=== PATIENT | female | born 1980 | race Caucasian/White ===

== ENCOUNTER 2016-11-29 03:20 | Inpatient (IN) | payer OTHER ==
[2016-11-29] MEDS ORDERED: OXYTOCIN 10 UNIT/ML 1 ML VIAL IM PRN (04:54)
[2016-11-29] MEDS ORDERED: TERBUTALINE 1 MG/ML VIAL SQ PRN (04:54)
[2016-11-29] MEDS ORDERED: LIDOCAINE 1% (PF) 10 MG/ML (30 ML SDV) SQ PRN (04:54)
[2016-11-29] MEDS ORDERED: CARBOPROST TROMETHAMINE 250 MCG/ML 1 ML AMP IM PRN (04:54)
[2016-11-29] MEDS ORDERED: ceFAZolin 2 GM in SODIUM CHLORIDE 0.9% 100 ML IVPB STA (04:54)
[2016-11-29] MEDS ORDERED: METHYLERGONOVINE 0.2 MG/ML 1 ML AMP IM PRN (04:54)
[2016-11-29] MEDS ORDERED: CITRIC ACID-SODIUM CITRATE 15 ML CUP PO ONE (04:58)
[2016-11-29] MEDS ORDERED: BUTORPHANOL 1 MG/ML 1 ML VIAL IV PRN (05:00)
--- NOTE | 2016-11-29 05:42 | P.HPOB ---
History of Present Illness H&P Date: 11/29/16 Chief Complaint: 39-2/7 weeks, previous section x2, early labor The patient is a 36-year-old 3 para 2001 admitted at 39-2/7 weeks as established by last menstrual period and confirmed by second trimester ultrasound. She is admitted with regular contractions every 2-4 minutes and a history of previous section x2. She has been scheduled for repeat low transverse section in 24-36 hours. Her was complicated by gestational diabetes which was well controlled with diet. She otherwise has requested a tubal ligation be performed intraoperatively. The risks and complications have been thoroughly discussed and she has signed consent to that effect. On labor and delivery, all signs are reassuring. She has been admitted to undergo the section was previously scheduled for tomorrow. Group B strep status is negative. Obstetrical history 3 para 2001 with 2 term deliveries without complications. Current statistics are listed in history of present illness. EDC of 12/04/2016 was established by last menstrual period and confirmed by second trimester ultrasound. Laboratory workup demonstrates a blood type of A+ with a negative antibody screen. Rubella status is immune. All other laboratory workup was within normal limits. Early Glucola was elevated but followed by a normal three-hour glucose tolerance test. Second trimester Glucola was significantly elevated at 209 making the diagnosis of gestational diabetes. Group B strep status is negative. Gynecologic history is unremarkable with no history of any infections to include STDs. Review of Systems Review of systems is confined to history of present illness. Past Medical History Additional Past Medical History / Comment(s): Gestational diabetes History of Any Multi-Drug Resistant Organisms: None Reported Past Surgical History: Section, Cholecystectomy Past Anesthesia/Blood Transfusion Reactions: No Reported Reaction Smoking Status: Never smoker - Past Family History Mother Family Medical History: Cancer Additional Family Medical History / Comment(s): thyroid Father Family Medical History: No Reported History Medications and Allergies Home Medications Medication Instructions Recorded Confirmed Type Xut-Rgmh-Salow Acid 1 cap PO DAILY 11/25/16 11/29/16 History [-U Capsule (formulary)] Acetaminophen/Diphenhydramine 1 tab PO ONCE 11/29/16 11/29/16 History [Tylenol PM 500-25mg] Allergies Allergy/AdvReac Type Severity Reaction Status Date / Time No Known Allergies Allergy Verified 11/25/16 15:47 Exam - Vital Signs Vital signs: Vital Signs Temp Pulse Resp BP Pulse Ox 11/29/16 03:40 97.6 F 76 16 137/84 99 Intake and Output 11/28/16 11/28/16 11/29/16 14:59 22:59 06:59 Other: Weight 93.894 kg Patient Weight 11/29/16 06:59 Weight 93.894 kg General, this is a well-developed, mild to moderately obese white female in no acute distress. Her heart has a regular rhythm and rate without murmur. Her lungs are clear to auscultation bilaterally in all armijo. Her abdomen is mild to moderately obese, nondistended, has normal active bowel sounds, is soft, nontender, and without any palpable masses aside from uterine fundus. Her extremities are without any cyanosis, clubbing, or significant edema and are nontender to palpation bilaterally. Digital cervical examination demonstrates her cervix to be 1 cm dilated, 100% effaced, with the vertex in presentation at -2 station. It has remained that way over the course of 1-2 hours but her contraction pattern remained stable and regular. Assessment and Plan (1) Previous section Status: Acute (2) Term Status: Acute Plan: The patient will be admitted to undergo repeat low transverse section later this morning. She will also undergo intraoperative bilateral tubal occlusion using Filshie clips. This has been reconfirmed with the patient. The risks and complications of the procedures have been thoroughly discussed and she has understood and agreed to proceed.
[2016-11-29 06:12] LABS: Basophils % (A) 0 %; CH 35.2; CHCM 35.2; Eosinophils % (A) 1 %; HCT 40.1 % (34.0-46.0); HGB 13.9 gm/dL (11.4-16.0); Luc # (Auto) 0.11; Luc % (Auto) 1; Lymphocytes # (A) 1.7 k/uL (1.0-4.8); Lymphocytes % (A) 19 %; MCH 34.9 pg (25.0-35.0); MCHC 34.7 g/dL (31.0-37.0); MCV 100.6 fL (80.0-100.0); Macrocytosis Slight; Mean Platelet Volume 9.8; Monocytes # (A) 0.4 k/uL (0-1.0); Monocytes % (A) 4 %; Neutrophils # (A) 6.8 k/uL (1.3-7.7); Neutrophils % (A) 75 %; RBC 3.99 m/uL (3.80-5.40); RDW 13.6 % (11.5-15.5); WBC 9.1 k/uL (3.8-10.6); WBC (Perox) 9.18
[2016-11-29] MEDS ORDERED: ONDANSETRON 4 MG/2 ML VIAL ONE (06:28)
[2016-11-29] MEDS ORDERED: NALBUPHINE 10 MG/ML AMPUL ONE (06:28)
[2016-11-29] MEDS ORDERED: MORPHINE SULFATE (PF) 0.3 MG/0.3 ML SYR ONE (06:28)
[2016-11-29] MEDS ORDERED: ePHEDrine SULFATE/0.9% NACL/PF 50 MG/5 ML SYRINGE IV ONE (06:28)
[2016-11-29] MEDS ORDERED: OXYTOCIN 10 UNIT/ML 1 ML VIAL ONE (06:28)
[2016-11-29] MEDS ORDERED: MORPHINE SULFATE 2 MG/ML SYRINGE IVP PRN (07:26)
[2016-11-29] MEDS ORDERED: diphenhydrAMINE 50 MG/ML 1 ML VIAL IVP PRN ×3 (07:26→07:31)
[2016-11-29] MEDS ORDERED: NALOXONE 0.4 MG/ML 1 ML VIAL IV PRN ×2 (07:26→07:31)
[2016-11-29] MEDS ORDERED: ONDANSETRON 4 MG/2 ML VIAL IVP PRN ×2 (07:26→07:31)
[2016-11-29] MEDS: LACTATED RINGERS 1,000 ML IV SCH ×2 (07:30→15:47)
[2016-11-29] MEDS ORDERED: METOCLOPRAMIDE 5 MG/ML 2 ML VIAL IVP PRN (07:31)
[2016-11-29] MEDS ORDERED: ACETAMINOPHEN TAB 325 MG TAB PO PRN (07:31)
[2016-11-29] MEDS ORDERED: diphenhydrAMINE 25 MG CAP PO PRN (07:31)
[2016-11-29] MEDS ORDERED: ZOLPIDEM 5 MG TAB PO PRN (07:31)
[2016-11-29] MEDS ORDERED: diphenhydrAMINE 50 MG CAP PO PRN (07:31)
[2016-11-29] MEDS ORDERED: LANOLIN CREAM 5 GM TUBE TOPICAL PRN (07:31)
[2016-11-29] MEDS ORDERED: Acetaminophen-Codeine 300-30mg TAB PO PRN (07:31)
[2016-11-29] MEDS ORDERED: SIMETHICONE 80 MG CHEWABLE PO PRN (07:31)
--- NOTE | 2016-11-29 07:44 | P.OP ---
Date of Procedure: 11/29/16 Preoperative Diagnosis: #1. 39-2/7 weeks in early labor, previous section x2 #2. Gestational diabetes #3. Undesired fertility Postoperative Diagnosis: Same Procedure(s) Performed: #1. Repeat low transverse section #2. Intraoperative bilateral tubal occlusion with Filshie clips Anesthesia: spinal Surgeon: Angel Brown Telecasting Engineer #1: Megha Orr Estimated Blood Loss (ml): 400 IV fluids (ml): 1,000 Urine output (ml): 100 Pathology: other (Placenta) Condition: stable Disposition: floor Operative Findings: Preoperatively, the patient had been scheduled for a repeat section tomorrow. She presented to labor and delivery in early labor with regular contractions in moderate discomfort. She was therefore taken to the operating room today for repeat low transverse section as noted above. She was delivered of a viable 7 lbs. 10 oz. baby girl with Apgars of 9 at 1 minute and 9 at 5 minutes in the right occiput anterior position. The placenta was delivered manually, intact, and grossly normal with a grossly normal three- vessel cord. The uterus, tubes, and ovaries were normal though there was a small right intramural mid fundal fibroid approximately 1-2 cm in size beneath the surface of the uterus. A Filshie clip was firmly applied across each fallopian tube in the isthmic portion approximately 2-3 cm from the cornu of the uterus bilaterally. There was a moderate amount of scarring at the level of the fascia and rectus muscles. The bladder was also scarred reasonably high on the uterus. Description of Procedure: The patient was prepped and draped in usual fashion after spinal anesthesia was administered by the anesthesiologist. A Pfannenstiel incision was made through pre-existing scar and extended into the abdominal cavity with only minimal difficulty secondary to the level of scarring at the fascia and rectus muscles. The bladder peritoneum was noted to be scarred relatively high and was reflected distally with the Metzenbaum scissors. A 2 cm incision was made in the transverse plane of the lower uterine segment to enter the uterus at which time clear fluid was noted. The incision was extended in both directions using the bandage scissors. The head was encountered in the pelvis and elevated up and through the incision where the nose and mouth were thoroughly suctioned. The remainder of the was delivered onto the field where the cord was doubly clamped, cut, and the infant passed for resuscitative measures with weight and Apgars as noted above. A segment of cord was doubly clamped, cut, and set aside should cord gases become necessary. The placenta was then delivered manually, intact, and grossly normal as noted above. The uterus was exteriorized and the interior cavity of the uterus swept of any remaining placental or membranous fragments. The margins of the incision were grasped with Topete clamps and the incision was closed in a single running locking stitch of 0 chromic catgut from margin to margin. There was some ongoing bleeding at the right margin which was made hemostatic with a jjgkko-ae-kltkd stitch of 0 chromic catgut. Any small points of bleeding were then made hemostatic with the Bovie. Once hemostasis was adequate, the posterior cul-de- sac was suctioned using a guard. After reaffirming the patient's desire for tubal ligation, a Filshie clip was firmly applied across the entire thickness of the fallopian tube at the isthmic portion approximately 2-3 cm from the cornu bilaterally. The uterus was then replaced within the abdominal cavity and the incision reexamined. Hemostasis was noted to be excellent. The gutters were swept of any remaining blood, fluid, or clot. The parietal peritoneum was loosely reapproximated and layer of muscles examined. There was some ongoing bleeding from dissection on the left rectus muscle underneath the fascia which was made hemostatic both with the Bovie and with a ltvlak-cp-dajgg stitch of 0 chromic catgut. Hemostasis at this time was excellent. The fascia was closed with 2 running stitches of 0 Vicryl proceeding from the lateral margins to the midpoint. The subcutaneous tissues were irrigated, made hemostatic with the Bovie, and reapproximated with a running stitch of 3-0 plain catgut. The skin was reapproximated with a running subcuticular stitch of 4-0 Vicryl followed by half-inch Steri-Strips placed with Mastisol. Estimated blood loss for the entire case was approximately 400 mL. There were no complications. All sponge, instrument, and needle counts were correct. The patient tolerated the procedure well and proceeded to the recovery room in stable condition. Both mother and are resting comfortably in recovery.
[2016-11-29] MEDS ORDERED: OXYTOCIN 20 UNITS/1000 ML NS 1,000 ML IV SCH (07:45)
[2016-11-29 08:00] VITALS: BMI 40.4
[2016-11-29] MEDS: SENNOSIDES-DOCUSATE SODIUM 1 EACH TAB PO SCH ×2 (08:26→20:11)
[2016-11-29] MEDS: KETOROLAC 30 MG/ML 1 ML VIAL IVP PRN ×2 (15:46→23:35)
[2016-11-30] MEDS: SENNOSIDES-DOCUSATE SODIUM 1 EACH TAB PO SCH ×2 (07:39→19:42)
[2016-11-30] MEDS: Acetaminophen-Codeine 300-30mg TAB PO PRN ×2 (07:39→16:38)
[2016-11-30 08:00] LABS: Basophils % (A) 0 %; CH 33.6; CHCM 34.1; Eosinophils # (A) 0.1 k/uL (0-0.7); Eosinophils % (A) 1 %; HCT 32.7 % (34.0-46.0); HDW 2.58; HGB 11.1 gm/dL (11.4-16.0); Luc # (Auto) 0.09; Luc % (Auto) 1; Lymphocytes % (A) 10 %; MCH 33.6 pg (25.0-35.0); MCHC 33.9 g/dL (31.0-37.0); MCV 99.2 fL (80.0-100.0); Mean Platelet Volume 8.5; Monocytes # (A) 0.3 k/uL (0-1.0); Monocytes % (A) 3 %; Neutrophils # (A) 8.3 k/uL (1.3-7.7); Neutrophils % (A) 85 %; RDW 13.1 % (11.5-15.5); WBC 9.8 k/uL (3.8-10.6); WBC (Perox) 9.72
--- NOTE | 2016-11-30 09:05 | P.PNOBGPC ---
Subjective - Subjective Patient reports: Reports appetite normal, Reports voiding normally, Reports pain well controlled, Reports ambulating normally : doing well Objective - Vital Signs Latest vital signs: Vital Signs Temp Pulse Resp BP Pulse Ox 11/30/16 07:44 97.8 F 85 16 123/67 11/30/16 04:00 97.7 F 72 16 133/77 11/30/16 00:00 98 F 81 16 137/88 11/29/16 20:00 97.9 F 73 16 153/78 98 11/29/16 15:00 98.1 F 85 16 139/87 11/29/16 14:00 16 11/29/16 09:34 97.9 F 68 16 123/58 97 11/29/16 09:04 62 14 133/62 Intake and Output 11/29/16 11/30/16 11/30/16 22:59 06:59 14:59 Output Total 1700 950 Balance -1700 -950 Output: Urine 1700 950 Straight 600 Other: # Voids 1 1 - Exam Extremities: Present: normal Abdomen: Present: normal appearance, soft. Absent: distention, tenderness Incision: Present: normal, dry, intact Uterus: Present: normal, firm (Uterine fundus as tonic and nontender just below the umbilicus.) - Labs Labs: Abnormal Lab Results - Last 24 Hours (Table) 11/30/16 Range/Units 07:18 RBC 3.30 L (3.80-5.40) m/uL Hgb 11.1 L (11.4-16.0) gm/dL Hct 32.7 L (34.0-46.0) % Plt Count 124 L (150-450) k/uL Neutrophils # 8.3 H (1.3-7.7) k/uL Assessment and Plan (1) Previous section Current Visit: Yes Status: Acute Code(s): Z98.891 - HISTORY OF UTERINE SCAR FROM PREVIOUS SURGERY SNOMED Code(s): 887078411 (2) Term Current Visit: Yes Status: Acute Code(s): Z34.80 - ENCOUNTER FOR SUPRVSN OF NORMAL , UNSP TRIMESTER SNOMED Code(s): 72758670 (3) S/P section Narrative/Plan: Continue routine postoperative care. I would anticipate discharge home tomorrow pending the complications. Current Visit: Yes Status: Acute Code(s): Z98.891 - HISTORY OF UTERINE SCAR FROM PREVIOUS SURGERY SNOMED Code(s): 743481907
[2016-11-30] MEDS: IBUPROFEN 600 MG TAB PO SCH ×2 (12:18→20:05)
--- NOTE | 2016-11-30 12:50 | P.PN ---
Progress Note - Text Progress Note Date: 11/30/16 Postoperative day 1 status post section under spinal anesthesia, and intrathecal morphine given for postoperative analgesia, patient doing well, there is no anesthesia related complications, further management as per her primary team
[2016-11-30] MEDS: LACTATED RINGERS 1,000 ML IV SCH (20:04)
[2016-12-01] MEDS: Acetaminophen-Codeine 300-30mg TAB PO PRN (00:23)
[2016-12-01] MEDS: SENNOSIDES-DOCUSATE SODIUM 1 EACH TAB PO SCH (08:35)
--- NOTE | 2016-12-01 08:45 | P.DS ---
Providers Date of admission: 11/29/16 05:00 Expected date of discharge: 12/01/16 Attending physician: Angel Brown Primary care physician: Angel Brown - Discharge Diagnosis(es) (1) Previous section Current Visit: Yes Status: Acute (2) Term Current Visit: Yes Status: Acute (3) S/P section Current Visit: Yes Status: Acute Hospital Course: The patient is a 36-year-old 3 para 2 scissors or 2 admitted at 39-2/7 weeks by good dating parameters. She is admitted in early labor with regular contractions and a history of 2 previous sections with plan for third the day following presentation. She also had requested intraoperative tubal ligation and signed consent to that effect. As result of her presentation labor , she was taken the operating room where she was delivered of a viable 7 lbs. 10 oz. baby girl with Apgars of 9 at 1 minute and 9 at 5 minutes. Her course was entirely uncomplicated with vital signs being stable and her temperature was afebrile throughout. She was deemed stable for discharge on postoperative day #2 and was discharged home to follow-up in the office in 2 weeks for an incision check and 6 weeks routinely. Discharge instructions included calling for any significantly increased bleeding or foul-smelling lochia, significantly increased fever or abdominal pain, perineal complaints, breast complaints, incisional complaints, or anything else that concerned her. She was additionally instructed to have nothing in the vagina for at least 6 weeks time to include intercourse and to abstain from any heavy lifting over the same period of time perches Raeann instructed to do no driving until off of all pain medications, or 2 weeks' time, whichever came first. She understood her instructions and agrees follow up as noted above. Discharge medications included continued vitamins as she has opted to breast-feed as well as hmhl-eqk-pjfueza analgesic pain medications. She was provided with a prescription for Tylenol No. 3, 1-2 by mouth every 6 hours when necessary pain, #30 dispensed with no refills. Maternal blood type is A+ and rubella status is immune. Discharge hemoglobin and hematocrit were 11.1 and 32.7 respectively. Procedures: #1. Repeat low transverse section #2. Intraoperative bilateral tubal occlusion with Filshie clips Patient Condition at Discharge: Good Plan - Discharge Summary New Discharge Prescriptions: No Action Mwx-Twpj-Uimgo Acid [-U Capsule (formulary)] 1 cap PO DAILY Acetaminophen/Diphenhydramine [Tylenol PM 500-25mg] 1 tab PO ONCE Discharge Medication List Kfu-Rgld-Rzvnf Acid [-U Capsule (formulary)] 1 cap PO DAILY 01/01 [History] Acetaminophen/Diphenhydramine [Tylenol PM 500-25mg] 1 tab PO ONCE 11/29/16 [ History]
[2016-12-01 10:01] VITALS: RESP 20
[2016-12-01 10:02] VITALS: BP 142/71; PULSE 84; TEMP 98.4
[2016-12-01] MEDS: IBUPROFEN 600 MG TAB PO SCH ×2 (12:01)
== END 2016-12-01 12:00 | disposition home or self-care (01) | DRG 766 ==
LOC: FBPOP 03:20 → 4FBP 05:00
PROVIDERS: ADMIT Obstetrics & Gynecology; ATTEND Obstetrics & Gynecology
PROC: 10D00Z1 Extraction of Products of Conception, Low, Open Approach (ICD-10-PCS; principal; 2016-11-29 06:30)
PROC: 0UL70CZ Occlusion of Bilateral Fallopian Tubes with Extraluminal Device, Open Approach (ICD-10-PCS; principal; 2016-11-29 06:30)
DX: O34.211 Maternal care for low transverse scar from previous cesarean delivery (principal); O24.420 Gestational diabetes mellitus in childbirth, diet controlled; D25.1 Intramural leiomyoma of uterus; Z37.0 Single live birth; Z3A.39 39 weeks gestation of pregnancy; Z30.2 Encounter for sterilization; O34.13 Maternal care for benign tumor of corpus uteri, third trimester
CPT/HCPCS: 59025; 85025; 86850; 86900; 86901; 88307; 99213

== ENCOUNTER → 2018-06-03 | Outpatient (CLI) | payer OTHER ==
--- NOTE | 2018-06-03 14:22 | XR ---
EXAMINATION TYPE: XR knee 4V RT DATE OF EXAM: 06/03/2018 COMPARISON: NONE HISTORY: Pain TECHNIQUE: Four views are submitted. FINDINGS: Joint spaces are preserved. Osseous structures are intact. No acute fracture seen. IMPRESSION: 1. No acute fracture or dislocation. If symptoms persist follow-up MRI recommended.
== END | disposition home or self-care (01) ==
LOC: RADXRYALE 13:53
PROVIDERS: ATTEND Nurse Practitioner Family
DX: M25.561 Pain in right knee (principal)

== ENCOUNTER 2018-08-31 13:29 | Emergency (ER) | payer OTHER ==
[2018-08-31 13:48] VITALS: RESP 16
--- NOTE | 2018-08-31 14:13 | XR ---
EXAMINATION TYPE: XR ankle complete LT DATE OF EXAM: 08/31/2018 COMPARISON: NONE HISTORY: Pain TECHNIQUE: 3 views of the left ankle are submitted for evaluation. FINDINGS: There is no evidence for fracture or dislocation. Ankle mortise is intact. Soft tissues are within normal limits. IMPRESSION: 1. No evidence for acute fracture.
--- NOTE | 2018-08-31 14:47 | ED ---
Lower Extremity Injury HPI - General Chief Complaint: Extremity Injury, Lower Stated Complaint: Ankle Injury Time Seen by Provider: 08/31/18 13:54 Source: patient Mode of arrival: ambulatory Limitations: no limitations - History of Present Illness Initial Comments: 37-year-old female presenting for left ankle pain. Patient states she stepped in a hole in her yard and twisted her left ankle inward. Patient states that she is able to weight-bear however this is painful. Patient denies fall injury to the head neck or low back. Patient denies numbness tingling loss sensation coolness or pallor of the extremity. Patient denies knee pain. Remaining review of system negative - Related Data Home Medications Medication Instructions Recorded Confirmed buPROPion HCL [Wellbutrin XL] 150 mg PO DAILY 08/31/18 08/31/18 Allergies Allergy/AdvReac Type Severity Reaction Status Date / Time No Known Allergies Allergy Verified 08/31/18 13:56 Review of Systems ROS Statement: Those systems with pertinent positive or pertinent negative responses have been documented in the HPI. ROS Other: All systems not noted in ROS Statement are negative. Past Medical History Past Medical History: Diabetes Mellitus Additional Past Medical History / Comment(s): Gestational diabetes History of Any Multi-Drug Resistant Organisms: None Reported Past Surgical History: Section, Cholecystectomy Past Anesthesia/Blood Transfusion Reactions: No Reported Reaction Past Psychological History: No Psychological Hx Reported Smoking Status: Never smoker Past Alcohol Use History: Occasional Past Drug Use History: None Reported - Past Family History Mother Family Medical History: Cancer Additional Family Medical History / Comment(s): thyroid Father Family Medical History: No Reported History General Exam - General Exam Comments Initial Comments: General: The patient is awake and alert, in no distress, and does not appear acutely ill. Eye: Pupils are equal, round and reactive to light, extra-ocular movements are intact. No nystagmus. There is normal conjunctiva bilaterally. No signs of icterus. Ears, nose, mouth and throat: There are moist mucous membranes and no oral lesions. Neck: The neck is supple, there is no tenderness or JVD. Cardiovascular: There is a regular rate and rhythm. No murmur, rub or gallop is appreciated. Respiratory: Lungs are clear to auscultation, respirations are non-labored, breath sounds are equal. No wheezes, stridor, rales, or rhonchi. Musculoskeletal: Upon inspection of the ankles bilaterally there is mild soft tissue swelling over the lateral malleolus of the left ankle. Patient is able to plantarflex dorsiflex and bearing E Davide at the ankles bilaterally however patient complains of discomfort left ankle. No evidence of foot drop. Full sensation proximal distal injury site +2 dorsalis pedis pulses bilaterally. Neurological: A&O x 3. CN II-XII intact, There are no obvious motor or sensory deficits. Coordination appears grossly intact. Speech is normal. Skin: Skin is warm and dry and no rashes or lesions are noted. Psychiatric: Cooperative, appropriate mood & affect, normal judgment. Limitations: no limitations Course Vital Signs 08/31/18 08/31/18 13:46 14:50 Temperature 97.7 F 97.9 F Pulse Rate 84 72 Respiratory 16 16 Rate Blood Pressure 127/87 137/82 O2 Sat by Pulse 98 98 Oximetry Medical Decision Making - Medical Decision Making Patient Norvasc intact. Evidence of soft tissue swelling over the lateral malleolus. No acute osseous injury on plain films. Injuries personally reviewed at the site. Patient most likely has a left ankle sprain there is evidence of pain on examination. Patient placed in Air-Stirrup's and given outpatient primary care follow-up. Patient is agreeable care plan as well as Rice instructions. Patient was discharged appearing well Disposition Clinical Impression: Left ankle sprain, Left ankle pain Disposition: HOME SELF-CARE Condition: Good Instructions (If sedation given, give patient instructions): Ankle Sprain (ED), R.I.C.E. Treatment (ED) Additional Instructions: Please use medication as discussed. Please follow-up with family doctor in the next 2 days, seek orthopedic evaluation if symptoms are persistent for greater than 1 week. Please return to emergency room if the symptoms increase or worsen or for any other concerns. Is patient prescribed a controlled substance at d/c from ED?: No Referrals: Cory aCvazos MD [Primary Care Provider] - 1-2 days Time of Disposition: 14:47
[2018-08-31 15:02] VITALS: BP 137/82; PULSE 72; TEMP 97.9
== END 2018-08-31 14:50 | disposition home or self-care (01) ==
LOC: EC 13:29
DX: S93.402A Sprain of unspecified ligament of left ankle, initial encounter (principal); Z79.899 Other long term (current) drug therapy; X50.1XXA Overexertion from prolonged static or awkward postures, initial encounter
CPT/HCPCS: 29515; 99283

== ENCOUNTER → 2019-06-01 | Outpatient (CLI) | payer OTHER ==
--- NOTE | 2019-06-01 11:14 | MR ---
PRE AND POSTCONTRAST ENHANCED MRI OF THE BRAIN and orbits: CLINICAL HISTORY: Double vision CONTRAST: Gadavist 8.5ml COMPARISON: MRI orbits dated 07/13/2014 Multiplanar and multispin-echo imaging of the brain was performed both before and after the administr ation of contrast. The ventricles, basal cisterns and sulci overlying the cerebral convexities are within normal limits. There is no evidence for midline shift or mass effect. Acute intracranial hemorrhage or extra-axial collection is not evident. There are multiple bilateral foci of increased signal within both cerebral hemispheres and infratento rial region. Small lesions are noted in the region of the brachium pontis as well as the christiana. Superi or cerebellar lesion is also noted measuring nearly 1 cm. Within the cerebral hemispheres. Back fin ismael morphology lesions seen number of lesions is estimated to be approximately 50 on the right and 40 on the left. The largest lesion within the left centrum semioval bilaterally measures 1.6 cm Ring en hancement noted. The largest lesion within the right cerebral hemisphere measures 7 mm within the rig ht temporal lobe. Several lesions demonstrate increased signal on diffusion-weighted imaging as well as enhancement indicating acute plaques of demyelination. The paranasal sinuses and mastoid air cells are well-aerated. MRI orbits: The globes are intact bilaterally. Rectus muscles appear symmetric and within normal limits in size. Intraconal fat is preserved. There is increased signal noted to involve the left optic nerve felt to reflect optic neuritis. Small focal area of enhancement is noted of the right optic nerve which may reflect additional optic neuritis. Optic chiasm is not effaced. The visualized paranasal sinuses are clear. IMPRESSION: 1. Findings are felt to be compatible with severe active multiple sclerosis. Lesions of other etiolog y not excluded. Direct clinical correlation recommended. 2. Findings compatible with optic neuritis bilaterally.
== END | disposition home or self-care (01) ==
LOC: RADMRIMAIN 08:05
PROVIDERS: ATTEND Ophthalmology
DX: H53.2 Diplopia (principal)
CPT/HCPCS: 70543; 70553; A9585

== ENCOUNTER → 2019-07-12 | Outpatient (CLI) | payer OTHER ==
[2019-07-12 21:22] LABS: Total Protein,CSF 55 mg/dL (12-60)
[2019-07-12 21:31] LABS: Appearance,CSF Clear; CSF Tube Number 4; CSF Tube Volume 2.75
[2019-07-12 21:32] LABS: Nucleated Cells, CSF 2 u/L (0-5); Red Blood Cell,CSF 0 u/L (0-10)
[2019-07-14 11:14] LABS: IgG - CSF 3.9 mg/dL (0.0 - 3.4); IgG Synthesis Rate 7.53 mg/day (0.00 - 3.00); IgG/Albumin Index (CSF) 0.91 (0.00 - 0.77); Immunoglobulin G 661 mg/dL (700 - 1600)
== END | disposition home or self-care (01) ==
LOC: LABWHC1 09:37
PROVIDERS: ATTEND Nurse Practitioner Family
DX: G35 Multiple sclerosis (principal); R53.83 Other fatigue; R90.89 Other abnormal findings on diagnostic imaging of central nervous system
CPT/HCPCS: 36415; 82040; 82042; 82784; 83873; 83916; 84157; 87801; 89050

== ENCOUNTER → 2019-11-29 | Outpatient (CLI) | payer OTHER ==
[2019-11-29 14:22] LABS: Basophils % (A) 1 %; Eosinophils # (A) 0.1 k/uL (0-0.7); Eosinophils % (A) 1 %; HCT 46.8 % (34.0-46.0); HGB 15.5 gm/dL (11.4-16.0); Lymphocytes % (A) 27 %; MCH 33.1 pg (25.0-35.0); MCHC 33.1 g/dL (31.0-37.0); MCV 99.8 fL (80.0-100.0); Mean Platelet Volume 7.4; Monocytes # (A) 0.3 k/uL (0-1.0); Monocytes % (A) 4 %; Neutrophils # (A) 5.1 k/uL (1.3-7.7); Neutrophils % (A) 66 %; Platelet Count 272 k/uL (150-450); RBC 4.69 m/uL (3.80-5.40); RDW 12.3 % (11.5-15.5); WBC 7.7 k/uL (3.8-10.6)
[2019-11-29 20:59] LABS: Hepatitis B Core IgM Non-Reactive (Non-Reactive); Hepatitis B Surface AB- Quant 3.5 mIU/mL; Hepatitis B Surface Antibody Non-Reactive (Non-Reactive); Hepatitis B Surface Antigen Non-Reactive (Non-Reactive)
[2019-11-29 21:55] LABS: African American GFR (CKD) 83.3 (60.0-200.0); Albumin 4.6 g/dL (3.80-4.90); Albumin/Globulin Ratio 2.09 (1.60-3.17); Anion Gap 10.1 mmol/L (4.00-12.00); Calcium 9.8 mg/dL (8.7-10.3); Carbon Dioxide 22.9 mmol/L (21.6-31.8); Globulin 2.2 g/dL (1.6-3.3); Non-African American GFR(CKD) 71.9 (60.0-200.0); Potassium 4.6 mmol/L (3.5-5.5); Total Protein 6.8 g/dL (6.2-8.2)
[2019-11-29 22:04] LABS: T4, Free (Free Thyroxine) 1.1 ng/dL (0.80-1.80)
== END | disposition home or self-care (01) ==
LOC: LABWHC1 11:32
PROVIDERS: ATTEND Nurse Practitioner Acute Care
DX: G35 Multiple sclerosis (principal); E55.9 Vitamin D deficiency, unspecified; R53.82 Chronic fatigue, unspecified; Z51.81 Encounter for therapeutic drug level monitoring
CPT/HCPCS: 36415; 80053; 82306; 82607; 84207; 84439; 84443; 84481; 85025; 86704; 86705; 86706; 86787; 87340

== ENCOUNTER → 2021-09-03 | Outpatient (CLI) | payer OTHER ==
--- NOTE | 2021-09-03 09:39 | MR ---
EXAMINATION TYPE: MR brain wo/w con DATE OF EXAM: 09/03/2021 COMPARISON: 06/01/2019 HISTORY: MS TECHNIQUE: Multiplanar, multisequence images of the brain and brainstem is performed without and with IV contras t, utilizing 7.5 mL intravenous Gadavist . FINDINGS: Diffusion weighted images demonstrate no evidence of a recent infarct or other diffusion ab normality. There is no extra-axial fluid collection or significant white matter signal abnormality. The ventricular system and cisternal spaces are normal in size and appearance. The brain volume is age appropriate. There are multiple bilateral foci of increased signal within both cerebral hemispheres and infratento rial region. Number of lesions is estimated to be approximately 50 on the right and 40 on the left. There is interval increase in number of lesions bilaterally a few additional lesions suspected. Some lesions demonstrating interval increase in size were others have demonstrated interval reduction in s ize. New 7 mm lesion in the right cerebellar hemisphere. Lesions in the posterior cerebral peduncle o n the right are similar with interval increase in number on the left. Pontine lesions are slightly im proved. Suspect the largest lesion on the left previously measuring 1.6 cm left frontal white matter has redu tamia in size now measuring 1.1 cm. The largest lesion within the right cerebral hemisphere measures 7 mm within the right temporal lobe and is stable. No enhancing lesions on today's exam. There are a f ew new lesions noted within the bilateral parietal white matter relative prior exam all measuring les s than 1 cm. There is a 8 mm lesion within the right frontal white matter. Couple lesions noted on th e prior exam are no longer seen on today's exam. Midline structures demonstrate normal morphology. The craniocervical junction appears within normal limits. Post contrast images demonstrate no abnormal enhancement. The dural venous sinuses appear pa tent. The visualized sinuses are clear and the globes are intact. IMPRESSION: 1. No enhancing lesions on today's exam. Interval reduction in size of the largest lesion on the left as discussed above. There remain numerous bilateral areas of abnormal signal in the white matter amie e of which are increased in size. There are a few additional lesions noted that were not seen on the prior exam. However, there are some lesions noted on the prior exam which are no longer seen. Correla te for MS or demyelinating process.
== END | disposition home or self-care (01) ==
LOC: RADMRIMAIN 08:30
PROVIDERS: ATTEND Psychiatry & Neurology Neurology
DX: G35 Multiple sclerosis (principal)
CPT/HCPCS: 70553; A9585

== ENCOUNTER → 2021-09-05 | Outpatient (CLI) | payer OTHER ==
--- NOTE | 2021-09-05 10:52 | MR ---
MR thoracic spine with and without contrast HISTORY: G 37 Multiplanar multisequence and postcontrast images obtained through the thoracic spine, patient receiv ed 7.5 cc Gadavist IV. No comparisons Thoracic vertebral bodies show preserved height, alignment, and bone marrow signal. Disc spaces are m aintained. There is no evident foraminal encroachment, spinal stenosis, or disc herniation. Thoracic cord signal is maintained. There is a slight spinal curvature. There is no evident enhancement following contrast administration. Distal common bile duct measures between 9-10 mm. Lung bases show no effusion. IMPRESSION: Normal thoracic spine MRI
== END | disposition home or self-care (01) ==
LOC: RADMRIMAIN 08:37
PROVIDERS: ATTEND Psychiatry & Neurology Neurology
DX: G35 Multiple sclerosis (principal)
CPT/HCPCS: 72157; A9585

== ENCOUNTER → 2021-09-29 | Outpatient (CLI) | payer OTHER ==
--- NOTE | 2021-09-30 01:50 | MR ---
EXAMINATION TYPE: MR cervical spine wo/w con DATE OF EXAM: 09/29/2021 COMPARISON: None HISTORY: Follow up, MS. CONTRAST: Standard multiplanar, multisequence MRI departmental protocol images were obtained without contrast a nd with 7.5 mL intravenous Gadavist gadolinium contrast. The cervical vertebra have normal alignment. Disc spaces are fairly normal. No compression fracture. The posterior element are intact. Cervical spinal cord has normal signal pattern. No edema. No cervic al spinal stenosis. There is no cervical paraspinal mass. Prevertebral soft tissues appear normal. Contrast images show n o pathologic enhancement. There is a small posterior disc bulge at C5-6. IMPRESSION: Minimal C5-6 disc bulging. No evidence of spinal stenosis. No fracture. No evidence of demyelinating disease.
== END | disposition home or self-care (01) ==
LOC: RADMRIMAIN 19:23
PROVIDERS: ATTEND Psychiatry & Neurology Neurology
DX: G35 Multiple sclerosis (principal)
CPT/HCPCS: 72156; A9585

== ENCOUNTER → 2022-10-14 | Outpatient (CLI) | payer OTHER ==
--- NOTE | 2022-10-15 08:37 | MM ---
Reason for Exam: Screening (asymptomatic). Baseline mammogram. Patient History: Menarche at age 13. First Full-Term at age 25. Premenopausal. Patient has history of breast feeding. Maternal aunt had breast cancer under age 50. Last menstrual period: 09/29/2022 Risk Values: Emily 5 year model risk: 0.5%. NCI Lifetime model risk: 9.9%. Prior Study Comparison: Patient's first Mammogram. Tissue Density: There are scattered fibroglandular densities. Findings: Analyzed By CAD. Asymmetry left 5.2 cm from the nipple, lateral on the LCC view. Right breast: There is no suspicious group of microcalcifications or new suspicious mass in either breast. Overall Assessment: Incomplete: need additional imaging evaluation, BI-RAD 0 Management: Diagnostic Mammogram of the left breast. [facility] will attempt to contact patient to return for supplemental views and ultrasound if indicated. Patient should continue monthly self-breast exams. A clinical breast exam by your physician is recommended on an annual basis. This exam should not preclude additional follow-up of suspicious palpable abnormalities. Note on Emily scores and lifetime risk: 1. A Emily score greater than 3% is considered moderate risk. If this is the case, consider specialist referral to assess eligibility for a risk reducing agent. 2. If overall lifetime risk for the development of breast cancer is 20% or higher, the patient may qualify for future screening with alternating mammogram and breast MRI. Electronically signed and approved by: Wale Velasquez DO
== END | disposition home or self-care (01) ==
LOC: RADMAMWWP 12:35
PROVIDERS: ATTEND Family Medicine
DX: Z12.31 Encounter for screening mammogram for malignant neoplasm of breast (principal); Z80.3 Family history of malignant neoplasm of breast
CPT/HCPCS: 77063; 77067

== ENCOUNTER → 2022-10-21 | Outpatient (CLI) | payer OTHER ==
--- NOTE | 2022-10-21 11:36 | MM ---
Reason for Exam: Additional evaluation requested from abnormal screening. Last screening mammogram was performed less than 1 month ago. Patient History: Menarche at age 13. First Full-Term at age 25. Premenopausal. Patient has history of breast feeding. Maternal aunt had breast cancer under age 50. Last menstrual period: 09/22/2022 Risk Values: Emily 5 year model risk: 0.5%. NCI Lifetime model risk: 9.9%. Prior Study Comparison: 10/14/2022 Bilateral MG 3D screening mammo w/cad, [facility]. Tissue Density: Left: There are scattered fibroglandular densities. Findings: Analyzed By CAD. On spot craniocaudal view no persistent suspicious nodularity is evident. There may be some increased density in the upper mid portion on the MLO view. This has indistinct borders and is not identified on the mediolateral oblique view. Findings may be related to summation density. Short-term follow-up is recommended. No suspicious groups of microcalcifications, spiculated or lobular masses, architectural distortion or other secondary signs of malignancy are mammographically apparent. Overall Assessment: Probably benign, BI-RAD 3 Management: Diagnostic Mammogram of the left breast in 6 months. A negative mammogram report should not preclude additional follow up of suspicious palpable abnormalities. Patient should continue monthly self breast exam. A clinical breast exam by your physician is recommended on an annual basis and results should be correlated with mammographic findings. Electronically signed and approved by: Alexandre Cai D.O. Radiologis
== END | disposition home or self-care (01) ==
LOC: RADMAMWWP 11:05
PROVIDERS: ATTEND Family Medicine
DX: R92.8 Other abnormal and inconclusive findings on diagnostic imaging of breast (principal); Z80.3 Family history of malignant neoplasm of breast
CPT/HCPCS: 77061; 77065

== ENCOUNTER → 2023-07-07 | Outpatient (CLI) | payer OTHER ==
--- NOTE | 2023-07-07 10:17 | MM ---
Reason for Exam: Follow-up at short interval from prior study. Last screening mammogram was performed 9 month(s) ago. Patient History: Menarche at age 13. First Full-Term at age 25. Premenopausal. Patient has history of breast feeding. Maternal aunt had breast cancer under age 50. Risk Values: Emily 5 year model risk: 0.5%. NCI Lifetime model risk: 9.9%. Prior Study Comparison: 10/14/2022 Bilateral MG 3D screening mammo w/cad, [facility]. 10/21/2022 Left MG 3D work up w/cad , [facility]. Tissue Density: Left: There are scattered areas of fibroglandular density. Findings: Analyzed By CAD. No significant interval change is evident. No persistent nodular density left breast identified. No suspicious groups of microcalcifications, spiculated or lobular masses, architectural distortion or other secondary signs of malignancy are mammographically apparent. Overall Assessment: Benign, BI-RAD 2 Management: Screening Mammogram of both breasts in 3 months. A negative mammogram report should not preclude additional follow up of suspicious palpable abnormalities. Patient should continue monthly self breast exam. A clinical breast exam by your physician is recommended on an annual basis and results should be correlated with mammographic findings. Note on Emily scores and lifetime risk: 1. A Emily score greater than 3% is considered moderate risk. If this is the case, consider specialist referral to assess eligibility for a risk reducing agent. 2. If overall lifetime risk for the development of breast cancer is 20% or higher, the patient may qualify for future screening with alternating mammogram and breast MRI. Electronically signed and approved by: Alexandre Cai D.O. Radiologis
== END | disposition home or self-care (01) ==
LOC: RADMAMWWP 09:48
PROVIDERS: ATTEND Family Medicine
DX: R92.322 Mammographic fibroglandular density, left breast (principal); Z80.3 Family history of malignant neoplasm of breast
CPT/HCPCS: 77061; 77065

== ENCOUNTER → 2023-11-16 | Outpatient (CLI) | payer OTHER ==
--- NOTE | 2023-11-17 12:18 | MM ---
Reason for Exam: Screening (asymptomatic). Last mammogram was performed 1 year(s) and 2 month(s) ago. Patient History: Menarche at age 13. First Full-Term at age 25. Premenopausal. Patient has history of breast feeding. Maternal aunt had breast cancer under age 50. Risk Values: Emily 5 year model risk: 0.6%. NCI Lifetime model risk: 9.8%. Prior Study Comparison: 10/14/2022 Bilateral MG 3D screening mammo w/cad, [facility]. 10/21/2022 Left MG 3D work up w/cad [facility], [facility]. 07/07/2023 Left MG 3D diag mammo w/cad LT, [facility]. Tissue Density: The breasts are heterogeneously dense, which may obscure small masses. Findings: Analyzed By CAD. There is no suspicious group of microcalcifications or new suspicious mass in either breast. Overall Assessment: Benign, BI-RAD 2 Management: Screening Mammogram of both breasts in 1 year. . Patient should continue monthly self-breast exams. A clinical breast exam by your physician is recommended on an annual basis. This exam should not preclude additional follow-up of suspicious palpable abnormalities. Note on Emily scores and lifetime risk: 1. A Emily score greater than 3% is considered moderate risk. If this is the case, consider specialist referral to assess eligibility for a risk reducing agent. 2. If overall lifetime risk for the development of breast cancer is 20% or higher, the patient may qualify for future screening with alternating mammogram and breast MRI. [facility], , 11/17/2023 12:15 PM. Electronically signed and approved by: Kb Lisa M.D. Radiologis
== END | disposition home or self-care (01) ==
LOC: RADMAMWWP 10:42
PROVIDERS: ATTEND Family Medicine
CPT/HCPCS: 77063; 77067